=== PATIENT | male | born 1975 | race Caucasian/White ===

== ENCOUNTER 2022-10-27 07:30 | Day surgery (SDC) | payer OTHER ==
[~2022-10-27] VITALS: Ht 193 cm; Wt 89.0 kg
[~2022-10-27 07:30] MED LIST: NS 1,000 ML IV ONE
[2022-10-27] MEDS ORDERED: propofoL 500 MG/50 ML VIAL As Ordered ONE (07:43)
[2022-10-27] MEDS ORDERED: fentaNYL 100 MCG/2 ML INJECTION As Ordered ONE (07:46)
[2022-10-27] MEDS ORDERED: LIDOCAINE 2% 100MG/5ML SDV (FOR ANES.) As Ordered ONE (07:46)
[2022-10-27 09:45] VITALS: BP 129/83; TEMP 96.9; O2SAT 96
== END 2022-10-27 09:53 | disposition home or self-care (01) ==
LOC: M OPP 07:30
PROVIDERS: ATTEND Internal Medicine Gastroenterology
DX: Z12.11 Encounter for screening for malignant neoplasm of colon (principal); K64.0 First degree hemorrhoids; K22.89 Other specified disease of esophagus; Z79.899 Other long term (current) drug therapy; Z91.011 Allergy to milk products
CPT/HCPCS: 43239; 45378; 88305; J3010

== ENCOUNTER → 2024-12-18 | Outpatient (CLI) | payer OTHER | LOC: M PLAIMG 06:35 | PROVIDERS: ATTEND Physician Assistant | DX: G44.89 Other headache syndrome (principal) ==

== ENCOUNTER → 2024-12-31 | Outpatient (CLI) | payer OTHER | LOC: M PLAIMG 07:18 | PROVIDERS: ATTEND Physician Assistant | DX: R51.9 Headache, unspecified (principal); R93.0 Abnormal findings on diagnostic imaging of skull and head, not elsewhere classified ==